=== PATIENT | female | born 1985 | race African-American/Black ===

== ENCOUNTER 2017-03-07 06:54 | Emergency (ER) | payer MEDICAID ==
[~2017-03-07] VITALS: Ht 167.6 cm; Wt 68.0 kg
[2017-03-07 08:21] LABS: Basophils # (auto) 0 uL; Basophils % (auto) 0.3 % (0.0-2.0); DEFINITIVE VIEW TRANSMISSION; Eosinophils # (auto) 0.1 uL; Eosinophils % (auto) 0.7 % (0.0-7.0); Hematocrit 37.4 % (36.0-46.0); Hemoglobin 12.2 g/dL (12.2-16.2); Lymphocytes # (auto) 1.3 uL; Mean Corpuscular Hemoglobin 26.8 pg (28.0-32.0); Mean Corpuscular Hgb Conc. 32.5 g/dL (32.0-36.0); Mean Corpuscular Volume 82.3 fL (80.0-100.0); Mean Platelet Volume 8.8 fL (7.4-10.4); Monocytes # (auto) 0.5 uL; Monocytes % (auto) 4.6 % (0.0-12.0); Neutrophils % (auto) 82.4 % (37.0-80.0); Platelet Count (auto) 263 10^3/uL (140-450); Red Cell Distribution Width 13.1 % (11.6-16.0); White Blood Cell 10.9 10^3/uL (4.4-10.8)
[2017-03-07 08:46] LABS: Albumin 3.9 g/dL (3.4-5.0); Alkaline Phosphatase 97 U/L (45-117); Anion Gap 8 (5-15); Aspartate Aminotransferase 19 U/L (15-37); BUN/Creatinine Ratio 13.2; Bilirubin, Total 0.6 mg/dL (0.2-1.0); Blood Urea Nitrogen 10 mg/dL (7-18); Calcium 8.9 mg/dL (8.5-10.1); Carbon Dioxide 25 mmol/L (21-32); Chloride 108 mmol/L (98-107); GFR African American 115 mL/min; GFR Non-African American 95 mL/min; Glucose 95 mg/dL (74-106); Potassium 3.7 mmol/L (3.5-5.1); Sodium 141 mmol/L (136-145); Total Protein 7.8 g/dL (6.4-8.2)
[2017-03-07 10:33] VITALS: BP 113/52
[2017-03-07] MEDS: KETOROLAC TROMETH 60MG/2ML VIAL IM ONE ×2 (11:13→11:26)
[2017-03-07] MEDS ORDERED: KETOROLAC TROMETH 30 MG/ML 1ML VIAL IV ONE (11:15)
== END 2017-03-07 12:25 | disposition home or self-care (01) ==
LOC: ER 06:57
DX: R07.89 Other chest pain (principal); R06.02 Shortness of breath
CPT/HCPCS: 36415; 71010; 80053; 84484; 85025; 85379; 93005; 94761; 99285; J7040

== ENCOUNTER 2019-11-14 00:50 | Emergency (ER) | payer MEDICAID ==
[~2019-11-14] VITALS: Ht 162.6 cm; Wt 78.5 kg
[2019-11-14 01:38] VITALS: BP 110/76
== END 2019-11-14 05:28 | disposition home or self-care (01) ==
LOC: ER 00:56
DX: J06.9 Acute upper respiratory infection, unspecified (principal)